=== PATIENT | female | born 1940 | race Caucasian/White ===

== ENCOUNTER → 2020-02-06 09:42 | Outpatient (CLI) | payer MEDICARE, SELFPAY ==
--- NOTE | 2020-02-06 17:59 | DI.NM.S_ITS ---
DATE OF SERVICE: 02/06/2020 PROCEDURE PERFORMED: Exercise treadmill stress and rest myocardial perfusion imaging with gating to assess ejection fraction and regional wall motion. ORDERING PROVIDER: Dr. Ag Talbot. INDICATIONS: The patient is a 79-year-old female with known coronary atherosclerosis and recent paroxysmal atrial fibrillation. EXERCISE TREADMILL TESTING: The patient was able to exercise for 3 minutes 20 seconds on a standard [place] protocol, but was then changed to 2.0 MPH at 12% grade for an additional minute as she was unable to keep up with the treadmill, suggesting probable moderately impaired exercise capacity. She had a normal heart rate and blood pressure response to exercise, achieving a maximum heart rate of 136 BPM (95% of her predicted maximum). She had no chest discomfort, but hadsignificant dyspnea and her oxygen saturation fell to 86% at peak exercise and then normalized. Her resting ECG showed sinus rhythm with normal ST segments. With exercise, there were no significant ST-segment shifts or arrhythmias. At 3 minutes 20 seconds of exercise, at a heart rate of 128 BPM, 26.1 millicuries of technetium-99m Myoview was injected and the patient was imaged 20 minutes later using a gated SPECT acquisition protocol. Earlier in the day while at rest, she was injected with 12.2 millicuries of technetium-99m Myoview and was imaged 30 minutes later, again using a gated SPECT acquisition protocol. FINDINGS: 1. There is fairly good myocardial tracer uptake but mild breast shadows are clearly noted. Her lung/heart ratio was normal at 0.27 with a normal TID ratio of 0.86. 2. Quantitated gated SPECT: Post-stress ejection fraction is estimated at 78% without any focal wall motion abnormality. Resting ejection fraction is 81% with an end-diastolic volume of 84 mL. 3. Myocardial perfusion imaging: Post-stress supine images show a fairly normal myocardial perfusion pattern with a very subtle defect in the anterior wall that completely resolves on prone imaging, most consistent with breast attenuation artifact. The resting images show a similar perfusion pattern to that of the post-stress supine images without any clear areas of improvement. IMPRESSION: 1. Normal myocardial perfusion study. 2. Subtle fixed anterior defect that resolves on prone imaging, most consistent with breast attenuation artifact. There is no compelling evidence for myocardial ischemia or previous myocardial infarction. 3. Normal left ventricular systolic function without any focal wall motion abnormality. 4. Moderately impaired exercise capacity with limiting dyspnea and documented hypoxemia, but no chest discomfort or ECG changes of ischemia. Kim Bateman - SANDRINE/michael/jocelyn doc#: [id number]/job#: [id number] dd: 02/06/2020 17:11:00 dt: 02/06/2020 17:33:00 DICTATING MD/COPIES TO: Jose Whitaker MD; Ag Talbot MD COPIES MNE: DORYS;
== END ==
PROVIDERS: PCP Family Medicine; Referring Provider Internal Medicine Cardiovascular Disease; Visit Provider Internal Medicine Cardiovascular Disease
DX: I48.0 Paroxysmal atrial fibrillation (principal); I10 Essential (primary) hypertension; I49.3 Ventricular premature depolarization; I25.10 Atherosclerotic heart disease of native coronary artery without angina pectoris
CPT/HCPCS: 78452; 93017; A9502